=== PATIENT | male | born 1945 | race Caucasian/White ===

== ENCOUNTER → 2020-09-23 | Outpatient (CLI) | payer MEDICARE, OTHER ==
--- NOTE | 2020-09-25 19:29 | RAD ---
Right thumb 3 views: Reason for examination: First digit pain for 2 months, sprain. Concern for fracture. No acute fracture or dislocation is seen. The bone density is normal. No abnormal periosteal reaction is seen. Joint spaces are maintained. IMPRESSION: No acute fracture or dislocation evident in the right thumb. Electronically signed by: Lita Slatre MD (09/25/2020 7:27 PM) [facility]
== END ==
LOC: RAD 15:21
PROVIDERS: ATTEND Internal Medicine
DX: S63.610A Unspecified sprain of right index finger, initial encounter (principal); X58.XXXA Exposure to other specified factors, initial encounter; Y93.89 Activity, other specified; Y92.89 Other specified places as the place of occurrence of the external cause; Y99.8 Other external cause status
CPT/HCPCS: 73140